=== PATIENT | female | born 1995 | race Caucasian/White ===

== ENCOUNTER 2018-04-27 07:58 | Inpatient (IN) | payer OTHER ==
[~2018-04-27] VITALS: Ht 154.9 cm; Wt 77.0 kg
[2018-04-27] VITALS (32 sets, daily range): BP systolic 99–127; BP diastolic 56–97; PULSE 69–90; RESP 17–18; TEMP 98.1
[2018-04-27] MEDS ORDERED: LACTATED RINGER'S 1000 ML INJ 1,000 ML IV PRN (08:24)
[2018-04-27] MEDS ORDERED: LACTATED RINGER'S 1000 ML INJ 1,000 ML IV SCH (08:24)
[2018-04-27] MEDS ORDERED: LIDOCAINE HCL 1% 50 ML VIAL I-DERMAL PRN (08:30)
[2018-04-27] MEDS ORDERED: MINERAL OIL 10 ML VIAL TOPICAL PRN (08:30)
[2018-04-27] MEDS ORDERED: SODIUM CHLORID 0.9% 500 ML INJ 500 ML IV PRN (08:30)
[2018-04-27] MEDS ORDERED: OXYTOCIN 30 UNITS-500ML PREMIX 500 ML IV PRN (08:30)
[2018-04-27] MEDS ORDERED: CITRIC ACID-SODIUM CITRATE LIQ 30 ML UDC PO SCH (08:30)
[2018-04-27] MEDS ORDERED: LIDOCAINE HCL 1% 50 ML VIAL INFIL PRN (08:30)
--- NOTE | 2018-04-27 08:30 | HHI.HP ---
HPI Chief Complaint Induction at 39 5/7 weeks Date Seen: Apr 27, 2018 Time Seen: 08:30 Travel History International Travel<30 Days: No Contact w/Intl Traveler<30Days: No Known Affected Area: No History of Present Illness HPI 22 yo doing well but at 39 5/7 weeks. For induction with pitocin Weeks Gestation: 39 Para: 0 : 1 History Past Medical History Medical History: Denies Significant Hx Obstetric History Obstetric History primigravid Past Surgical History Narrative Surgical kidney stones Surgical History: No Previous Surgery Family History Family History: Negative Social History Alcohol Use: No Tobacco Use: No Substance Abuse: No Allergies-Medications (Allergen,Severity, Reaction): Coded Allergies: No Known Allergies (Unverified , 04/27/18) Review of Systems Except as stated in HPI: all other systems reviewed are Neg Physical Exam Narrative GENERAL: Well-nourished, well-developed patient. SKIN: Warm and dry. HEAD: Normocephalic and atraumatic. EYES: No scleral icterus. No injection or drainage. ENT: No nasal drainage noted. Mucous membranes pink. Airway patent. NECK: Supple, trachea midline. No JVD. CARDIOVASCULAR: Regular rate and rhythm without murmurs, gallops, or rubs. RESPIRATORY: Breath sounds equal bilaterally. No accessory muscle use. BREASTS: Bilateral exam showed no masses , no retractions, no nipple discharge. ABDOMEN/GI: Abdomen soft, non-tender, bowel sounds present, no rebound, no guarding Gravid to 40 weeks size Fundal Height: [-] GENITOURINARY: External Genitalia: intact and normal in appearance BUS glands: [-] Cervix: [-] Dilatation: [-] Effacement: [-] Station: [-] Presentation: [-] Membranes:[intact Uterine Contractions: [-] FHT's: Category: 1 Baseline: [-] Reactive: [-] Variability: [-] Decels: [-] EXTREMITIES: No cyanosis or edema. BACK: Nontender without obvious deformity. No CVA tenderness. NEUROLOGICAL: Awake and alert. Motor and sensory grossly within normal limits. Five out of 5 muscle strength in all muscle groups. Normal speech. Caprini VTE Risk Assessment Caprini VTE Risk Assessment: No/Low Risk (score <= 1) Caprini Risk Assessment Model Point Value = 1 Point Value = 2 Point Value = 3 Point Value = 5 Age 41-60 Minor surgery BMI > 25 kg/m2 Swollen legs Varicose veins or History of unexplained or recurrent spontaneous Oral contraceptives or hormone replacement Sepsis (< 1 month) Serious lung disease, including pneumonia (< 1 month) Abnormal pulmonary function Acute myocardial infarction Congestive heart failure (< 1 month) History of inflammatory bowel disease Medical patient at bed rest Age 61-74 Arthroscopic surgery Major open surgery (> 45 min) Laparoscopic surgery (> 45 min) Malignancy Confined to bed (> 72 hours) Immobilizing plaster cast Central venous access Age >= 75 History of VTE Family history of VTE Factor V Leiden Prothrombin [id number] Lupus anticoagulant Anticardiolipin antibodies Elevated serum homocysteine Heparin-induced thrombocytopenia Other congenital or acquired thrombophilia Stroke (< 1 month) Elective arthroplasty Hip, pelvis, or leg fracture Acute spinal cord injury (< 1 month) Prophylaxis Regimen Total Risk Factor Score Risk Level Prophylaxis Regimen 0-1 Low Early ambulation 2 Moderate Order ONE of the following: *Sequential Compression Device (SCD) *Heparin 5000 units SQ BID 3-4 Higher Order ONE of the following medications: *Heparin 5000 units SQ TID *Enoxaparin/Lovenox 40 mg SQ daily (WT < 150 kg, CrCl > 30 mL/min) *Enoxaparin/Lovenox 30 mg SQ daily (WT < 150 kg, CrCl > 10-29 mL/min) *Enoxaparin/Lovenox 30 mg SQ BID (WT < 150 kg, CrCl > 30 mL/min) AND/OR *Sequential Compression Device (SCD) 5 or more Highest Order ONE of the following medications: *Heparin 5000 units SQ TID (Preferred with Epidurals) *Enoxaparin/Lovenox 40 mg SQ daily (WT < 150 kg, CrCl > 30 mL/min) *Enoxaparin/Lovenox 30 mg SQ daily (WT < 150 kg, CrCl > 10-29 mL/min) *Enoxaparin/Lovenox 30 mg SQ BID (WT < 150 kg, CrCl > 30 mL/min) AND *Sequential Compression Device (SCD) Data Data Vital Signs Reviewed: Yes Orders Orders Admit To Inpatient (04/27/18 ) Code Status (04/27/18 08:24) Vital Signs (Adult) .Per protocol (04/27/18 08:24) Heart (04/27/18 08:24) Amnioinfusion (04/27/18 08:24) Urinary Catheter Management .ONCE (04/27/18 08:24) Lactated Ringer's 1000 Ml Inj (Lr 1000 M (04/27/18 08:24) Lactated Ringer's 1000 Ml Inj (Lr 1000 M (04/27/18 08:24) Sodium Chlorid 0.9% 500 Ml Inj (Ns 500 M (04/27/18 08:30) Sodium Chlor 0.9% 1000 Ml Inj (Ns 1000 M (04/27/18 08:44) Lidocaine 1% Inj (50 Ml) (Xylocaine 1% I (04/27/18 08:30) Citric Acid-Sodium Citrate Liq (Bicitra (04/27/18 08:30) Fentanyl Inj (Fentanyl Inj) (04/27/18 08:30) Fentanyl Inj (Fentanyl Inj) (04/27/18 08:30) Complete Blood Count With Diff (04/27/18:24) Hold Clot (04/27/18:) Abo/Rh Blood Type (04/27/18 08:24) Urinalysis - C+S If Indicated (04/27/18 08:24) Drug Screen, Random Urine (04/27/18:24) Ob/Psych Drug Screen, Urine (04/27/18:24) Resp Oxygen Non Rebreathe Mask (04/27/18 ) ^ Epidural / Intrathecal Infus (04/27/18 08:24) Oxytocin 30 Units-500ml Premix (Pitocin (04/27/18 08:30) Lidocaine 1% Inj (50 Ml) (Xylocaine 1% I (04/27/18 08:30) Light Mineral Oil (Muri-Lube Oil) (04/27/18 08:30) Specimen To Be Collected PRN (04/27/18:24) Specimen To Be Collected PRN (04/27/18:24) ^ Non Stress Test (04/27/18:) Response To Medication .Post New Med Administration, Reaction (04/27/18 08:26) ^ Discontinue Medication (04/27/18:) Oxytocin Drip (2-2-30) (04/27/18 08:30) Group B Strep: Negative Assessment/Plan Problem List: (1) 39 weeks gestation of ICD Codes: Z3A.39 - 39 weeks gestation of Earnest Carter MD Apr 27, 2018 08:30
[2018-04-27] MEDS ORDERED: SODIUM CHLOR 0.9% 1000 ML INJ 1,000 ML IV PRN (08:44)
[2018-04-27 08:46] LABS: AUTOMATED NEUTROPHIL # 7.7 TH/MM3 (1.8-7.7); BASOPHIL # 0.1 TH/MM3 (0-0.2); BASOPHIL % 0.7 % (0.0-2.0); EOSINOPHIL # 0.1 TH/MM3 (0-0.4); EOSINOPHIL % 0.7 % (0.0-4.0); HEMATOCRIT 36.5 % (35.0-46.0); HEMOGLOBIN 12.2 GM/DL (11.6-15.3); LYMPH % 16.6 % (9.0-44.0); LYMPHOCYTE # 1.8 TH/MM3 (1.0-4.8); MEAN CELL VOLUME 88.7 FL (80.0-100.0); MEAN CORPUSCULAR HEMOGLOBIN 29.7 PG (27.0-34.0); MEAN CORPUSCULAR HGB CONC 33.5 % (32.0-36.0); MEAN PLATELET VOLUME 8.4 FL (7.0-11.0); MONO % 9.1 % (0.0-8.0); NEUT % 72.9 % (16.0-70.0); PLATELET COUNT 295 TH/MM3 (150-450); RED BLOOD COUNT 4.11 MIL/MM3 (4.00-5.30); RED CELL DISTRIBUTION WIDTH 14.7 % (11.6-17.2); WHITE BLOOD COUNT 10.6 TH/MM3 (4.0-11.0)
[2018-04-27] MEDS ORDERED: OXYTOCIN 30 UNITS-500ML PREMIX 500 ML IV ONE (09:00)
--- NOTE | 2018-04-27 09:24 | PD.LABORPN ---
Subjective Subjective due today Objective Objective Pelvic Exam: Cervix: [-] Dilatation: 2 Effacement: 70 Station: -2 Presentation: vtx Membranes: AROM at 0920 Uterine Contractions: [-] FHT's: Category:1 Baseline: [-] Reactive: [-] Variability: [-] Decels: [-] Weeks Gestation: 40 Gest Age Assessed Date: Apr 27, 2018 Gest Age Assessed Time: 09:00 Pt started active labor?: Yes Active labor start date: Apr 27, 2018 Active labor start time: 09:20 Medical induction of labor?: No Artificial rupture of membrane: Yes Artificial ROM date: Apr 27, 2018 Artifical ROM time: 09:20 Assessment/Plan Problem List: (1) 39 weeks gestation of ICD Codes: Z3A.39 - 39 weeks gestation of (2) 40 weeks gestation of ICD Codes: Z3A.40 - 40 weeks gestation of Earnest Carter MD Apr 27, 2018 09:24
[2018-04-27 09:59] LABS: AMORPHOUS SEDIMENT, URINE OCC; BACTERIA, URINE RARE /hpf; BILIRUBIN, URINE NEG (NEG); BLOOD, URINE NEG (NEG); GLUCOSE,URINE NEG (NEG); KETONE, URINE NEG (NEG); NITRITE,URINE NEG (NEG); SQUAMOUS EPITHELIAL CELL URINE 1 /hpf (0-5); URINE COLOR YELLOW (YELLW/STRAW); URINE LEUKOCYTE ESTERASE NEG (NEG)
--- NOTE | 2018-04-27 17:30 | PD.LABORPN ---
Subjective Subjective doing well Objective Objective Pelvic Exam: Cervix: [-] Dilatation: 3 Effacement: [-] Station: [-] Presentation: vtx Membranes: AROM Uterine Contractions: [-] FHT's: Category: 1 Baseline: [-] Reactive: [-] Variability: [-] Decels: [-] Weeks Gestation: 40 Gest Age Assessed Date: Apr 27, 2018 Gest Age Assessed Time: 09:00 Pt started active labor?: Yes Active labor start date: Apr 27, 2018 Active labor start time: 09:20 Medical induction of labor?: No Artificial rupture of membrane: Yes Artificial ROM date: Apr 27, 2018 Artifical ROM time: 09:20 Assessment/Plan Problem List: (1) 39 weeks gestation of ICD Codes: Z3A.39 - 39 weeks gestation of (2) 40 weeks gestation of ICD Codes: Z3A.40 - 40 weeks gestation of [facility] Apr 27, 2018 17:30
[2018-04-27] MEDS ORDERED: fentaNYL 2MCG-BUPIV 0.125% INJ 150 ML EPIDURAL ONE (19:49)
[2018-04-27] MEDS ORDERED: ePHEDrine/NS 25 MG/5 ML SYRINGE IV PUSH PRN (21:30)
[2018-04-27] MEDS ORDERED: fentaNYL 2MCG-BUPIV 0.125% 150 ML EPIDURAL PRN (21:30)
[2018-04-27] MEDS ORDERED: DO NOT ADMINISTER ANTICOAGULANTS PRN (21:30)
[2018-04-27] MEDS ORDERED: NO SYSTEM NARCOTICS PRN (21:30)
[2018-04-28] VITALS (48 sets, daily range): BP systolic 114–136; BP diastolic 67–83; PULSE 71–95; RESP 17–18; TEMP 98.3–99.1
--- NOTE | 2018-04-28 07:49 | PD.OB.DELI ---
Weeks gestation: 40 Gest age assessed date: Apr 27, 2018 Gest age assessed time: 09:00 Pt started active labor?: Yes Active labor start date: Apr 27, 2018 Active labor start time: 09:20 Medical induction of labor?: No Artificial rupture of membrane: Yes Artificial ROM date: Apr 27, 2018 Artifical ROM time: 09:20 Anesthesia: Epidural Episiotomy: None Vaginal Delivery: Normal, Spontaneous Presentation: Occiput anterior Nuchal Cord: x1 Delayed cord clamping (45 sec): Yes Infant: Male, Single Delivery date: Apr 28, 2018 Delivery time: 07:28 One Minute : 7 Five Minute : 9 Placenta: Spontaneous delivery, Intact, 3 vessel cord Laceration: Vaginal laceration, 1 deg Repair: Chromic interrupted Estimated blood loss: 300 Earnest Carter MD Apr 28, 2018 07:49
[2018-04-28] MEDS ORDERED: OXYTOCIN 30 UNITS-500ML PREMIX 500 ML IV SCH (08:00)
[2018-04-28] MEDS ORDERED: ONDANSETRON ODT 4 MG TAB PO PRN (08:00)
[2018-04-28] MEDS ORDERED: ALUMINUM/MAGNESIUM/SIMETH 30 ML CUP PO PRN (08:00)
[2018-04-28] MEDS ORDERED: WITCH HAZEL 50%/GLYCERIN 12.5% 40 PAD JAR TOPICAL PRN (08:00)
[2018-04-28] MEDS ORDERED: ACETAMINOPHEN 325 MG TAB PO PRN (08:00)
[2018-04-28] MEDS ORDERED: SODIUM CHLORIDE 0.9% FLUSH 10 ML FLUSH IV FLUSH PRN (08:00)
[2018-04-28] MEDS ORDERED: oxyCODONE/ACETAMINOPHEN 5 MG/325 MG TAB PO PRN ×2 (08:00)
[2018-04-28] MEDS ORDERED: BENZOCAINE 20% TOPICAL SPRAY 60 ML CAN TOPICAL PRN (08:00)
[2018-04-28] MEDS ORDERED: MEASLES, MUMPS, RUBELLA VACCINE 0.5 ML VIAL SQ ONE (16:00)
[2018-04-28] MEDS ORDERED: DIPHTH/TETANUS/ACEL PERTUSSIS (BOOSTER) 0.5 ML VIAL/PFS IM ONE (16:00)
[2018-04-28] MEDS ORDERED: ZOLPIDEM TARTRATE 5 MG TAB PO PRN (21:00)
[2018-04-28] MEDS: DOCUSATE SODIUM 50 MG/SENNA 8.6 MG TAB PO PRN (23:51)
[2018-04-28] MEDS: IBUPROFEN 800 MG TAB PO PRN (23:52)
--- NOTE | 2018-04-29 07:18 | HHI.OB ---
Subjective Post Day: 1 Remarks doing well. Patient wants to go if can go home Objective Vitals/I&O Vital Signs Date Time Temp Pulse Resp B/P (MAP) Pulse Ox O2 Delivery O2 Flow Rate FiO2 04/28/18 21:05 98.3 91 18 125/80 (95) 04/28/18 10:45 17 04/28/18 09:27 17 04/28/18 09:15 86 128/74 (92) 04/28/18 09:00 18 04/28/18 08:45 85 134/77 (96) 04/28/18 08:30 93 124/70 (88) 04/28/18 08:23 18 04/28/18 08:02 99.1 17 04/28/18 08:00 89 128/70 (89) 04/28/18 07:49 95 17 136/79 (98) Objective Remarks GENERAL: Well-nourished, well-developed patient. ABDOMEN/GI: Abdomen soft, non-tender. Fundus: Firm, non-tender at umbilicus. GENITOURINARY: Light to moderate bleeding. EXTREMITIES: No cyanosis or edema, non-tender, without signs of DVT. Medications and IVs Current Medications Medications (Trade) Dose Ordered Sig/Jose Route Start Time Stop Time Status Last Admin (NS Flush) 2 ml BID IV FLUSH 04/28/18 09:00 (NS Flush) 2 ml UNSCH PRN IV FLUSH 04/28/18 08:00 (Tylenol) 650 mg Q4H PRN PO 04/28/18 08:00 (Motrin) 800 mg Q8H PRN PO 04/28/18 08:00 04/28/18 23:52 (Percocet 5-325 Mg) 1 tab Q4H PRN PO 04/28/18 08:00 (Percocet 5-325 Mg) 2 tab Q4H PRN PO 04/28/18 08:00 (Americaine 20% Top Spr) 1 spray Q4H PRN TOPICAL 04/28/18 08:00 04/28/18 17:33 (Tucks Pads) 1 applic QID PRN TOPICAL 04/28/18 08:00 04/28/18 17:33 (Kristina-Colace) 2 tab Q12H PRN PO 04/28/18 08:00 04/28/18 23:51 (Ambien) 5 mg HS PRN PO 04/28/18 21:00 (Mag-Al Plus Susp Liq) 15 ml Q8H PRN PO 04/28/18 08:00 (Zofran Odt) 4 mg Q6H PRN PO 04/28/18 08:00 Assessment/Plan Problem List: (1) 39 weeks gestation of ICD Codes: Z3A.39 - 39 weeks gestation of (2) 40 weeks gestation of ICD Codes: Z3A.40 - 40 weeks gestation of Plan: doing well Post (3) Spontaneous vaginal delivery ICD Codes: O80 - Encounter for full-term uncomplicated delivery Earnest Carter MD Apr 29, 2018 07:18
--- NOTE | 2018-04-29 07:20 | HHI.DCPOC ---
Discharge Care Plan Diagnosis: (1) Spontaneous vaginal delivery Report Symptoms to Your Doctor -Temperature above 100.5 degrees -Redness, of incision or excessive or foul smelling drainage -Unusual pain or calf pain -Increased vaginal bleeding -Painful or difficulty urinating -Feelings of extreme sadness or anxiety after 2 weeks Goals to Promote Your Health * To prevent worsening of your condition and complications * To maintain your health at the optimal level Directions to Meet Your Goals Take your medications as prescribed Follow your dietary instruction Follow activity as directed Ensure plenty of rest for recovery Drink fluids for hydration Keep your appointments as scheduled Take your immunizations and boosters as scheduled If your symptoms worsen call your PCP, if no PCP go to Urgent Care Center or Emergency Room Smoking is Dangerous to Your Health. Avoid second hand smoke Call the 24-hour crisis hotline for domestic abuse at Earnest Carter MD Apr 29, 2018 07:20
[2018-04-29] MEDS ORDERED: OXYC1TAB63 PO (07:21)
--- NOTE | 2018-04-29 07:22 | HHI.DS ---
Admission Date Apr 27, 2018 at 07:58 Discharge Date: Apr 29, 2018 Admitting Diagnosis Diagnosis: (1) Spontaneous vaginal delivery ICD Codes: O80 - Encounter for full-term uncomplicated delivery Delivery Date: Apr 28, 2018 Vaginal Delivery: Normal, Spontaneous : Male, Single Brief History 22 yo doing well but at 39 5/7 weeks. For induction with pitocin Hospital Course induction for 22 hours then with out difficulty Pt Condition on Discharge: Good Discharge Disposition: Discharge Home Discharge Instructions Diet Instructions: As Tolerated, No Restrictions Activities You Can Perform: Regular-No Restrictions, Pelvic Rest Activities to Avoid: Driving for 24 hrs Follow up Referrals: MANAGER INTERNAL - 2 Weeks @ [facility] with Earnest Carter MD New Medications: Oxycodone HCl/Acetaminophen (Oxycodone-Acetaminophen 5-325) 5 Mg-325 Mg Tablet 2 TAB PO Q4H PRN for PAIN SCALE 6 TO 10, #20 TAB Earnest Carter MD Apr 29, 2018 07:22
[2018-04-29] MEDS: IBUPROFEN 800 MG TAB PO PRN ×2 (08:03→16:57)
[2018-04-29] MEDS: SODIUM CHLORIDE 0.9% FLUSH 10 ML FLUSH IV FLUSH SCH (09:00)
[2018-04-29] MEDS ORDERED: DIPHTH/TETANUS/ACEL PERTUSSIS (BOOSTER) 0.5 ML VIAL/PFS IM ONE (12:30)
[2018-04-29 20:00] VITALS: BP 126/80; PULSE 75; RESP 18; TEMP 98.3; O2SAT 98
[2018-04-30] MEDS: DOCUSATE SODIUM 50 MG/SENNA 8.6 MG TAB PO PRN (00:43)
[2018-04-30] MEDS: IBUPROFEN 800 MG TAB PO PRN (00:44)
--- NOTE | 2018-04-30 05:31 | HHI.OB ---
Subjective Post Day: 2 Remarks doing well sleeping this AM. she will dc today. Stayed because baby not DC 2017 Objective Vitals/I&O Vital Signs Date Time Temp Pulse Resp B/P (MAP) Pulse Ox O2 Delivery O2 Flow Rate FiO2 04/29/18 20:00 98.3 75 18 126/80 (95) 98 Objective Remarks GENERAL: Well-nourished, well-developed patient. ABDOMEN/GI: Abdomen soft, non-tender. Fundus: Firm, non-tender at umbilicus. GENITOURINARY: Light to moderate bleeding. EXTREMITIES: No cyanosis or edema, non-tender, without signs of DVT. Medications and IVs Current Medications Medications (Trade) Dose Ordered Sig/Jose Route Start Time Stop Time Status Last Admin (NS Flush) 2 ml BID IV FLUSH 04/28/18 09:00 (NS Flush) 2 ml UNSCH PRN IV FLUSH 04/28/18 08:00 (Tylenol) 650 mg Q4H PRN PO 04/28/18 08:00 (Motrin) 800 mg Q8H PRN PO 04/28/18 08:00 04/30/18 00:44 (Percocet 5-325 Mg) 1 tab Q4H PRN PO 04/28/18 08:00 (Percocet 5-325 Mg) 2 tab Q4H PRN PO 04/28/18 08:00 (Americaine 20% Top Spr) 1 spray Q4H PRN TOPICAL 04/28/18 08:00 04/28/18 17:33 (Tucks Pads) 1 applic QID PRN TOPICAL 04/28/18 08:00 04/28/18 17:33 (Kristina-Colace) 2 tab Q12H PRN PO 04/28/18 08:00 04/30/18 00:43 (Ambien) 5 mg HS PRN PO 04/28/18 21:00 (Mag-Al Plus Susp Liq) 15 ml Q8H PRN PO 04/28/18 08:00 (Zofran Odt) 4 mg Q6H PRN PO 04/28/18 08:00 Assessment/Plan Problem List: (1) 39 weeks gestation of ICD Codes: Z3A.39 - 39 weeks gestation of (2) 40 weeks gestation of ICD Codes: Z3A.40 - 40 weeks gestation of Plan: doing well Post (3) Spontaneous vaginal delivery ICD Codes: O80 - Encounter for full-term uncomplicated delivery Discharge Planning dc 04/30/18 Earnest Carter MD Apr 30, 2018 05:31
[2018-04-30 08:09] VITALS: BP 119/69; PULSE 82; RESP 20; TEMP 98; O2SAT 96
[2018-04-30] MEDS: SODIUM CHLORIDE 0.9% FLUSH 10 ML FLUSH IV FLUSH SCH (09:02)
== END 2018-04-30 15:12 | disposition home or self-care (01) | DRG 775 ==
LOC: H2EB 07:58 → H1EA 04-28 13:13
PROVIDERS: ADMIT Obstetrics & Gynecology; ATTEND Obstetrics & Gynecology
PROC: 10907ZC Drainage of Amniotic Fluid, Therapeutic from Products of Conception, Via Natural or Artificial Opening (ICD-10-PCS; 2018-04-27)
PROC: 00HU33Z Insertion of Infusion Device into Spinal Canal, Percutaneous Approach (ICD-10-PCS; 2018-04-27)
PROC: 3E0R3BZ Introduction of Anesthetic Agent into Spinal Canal, Percutaneous Approach (ICD-10-PCS; 2018-04-27)
PROC: 10E0XZZ Delivery of Products of Conception, External Approach (ICD-10-PCS; principal; 2018-04-28)
PROC: 0HQ9XZZ Repair Perineum Skin, External Approach (ICD-10-PCS; 2018-04-28)
DX: O69.81X0 Labor and delivery complicated by cord around neck, without compression, not applicable or unspecified (principal); O70.0 First degree perineal laceration during delivery; Z3A.39 39 weeks gestation of pregnancy; Z37.0 Single live birth; Z23 Encounter for immunization
CPT/HCPCS: 80307; 81001; 85025; 86900; 86901; 90715; J2590; J7120